=== PATIENT | male | born 1980 ===

== ENCOUNTER 2017-03-21 05:18 | Day surgery (SDC) | payer BC ==
[2017-03-21] VITALS (11 sets, daily range): BP systolic 108–122; BP diastolic 69–76
[~2017-03-21] VITALS: Ht 175.3 cm; Wt 63.5 kg
[~2017-03-21 05:18] MED LIST: NKM
[2017-03-21] MEDS ORDERED: ceFAZolin 1gm in D5W 55ml IVP ONE (06:00)
[2017-03-21] MEDS ORDERED: oxyCONTIN 20mg tab ORAL ONE (06:00)
[2017-03-21] MEDS ORDERED: celeBREX 200mg Cap **SURGERY PATIENTS ONLY ORAL ONE ×2 (06:00→06:21)
[2017-03-21] MEDS ORDERED: Ropivacaine 5mg/ml Vial 30ml INJ ONE ×2 (06:17→06:37)
[2017-03-21] MEDS ORDERED: Bupivacaine w/Epi 0.5% 30ml Vial INJ ONE (06:37)
[2017-03-21] MEDS ORDERED: LR 1000ml 1,000 ML IVLG SCH (06:58)
--- NOTE | 2017-03-21 06:58 | Anethesia Preoperative Eval ---
Anesthesia Pre-op PMH/ROS General Date of Evaluation: Mar 21, 2017 Time of Evaluation: 07:01 Anesthesiologist: Lizbeth ASA Score: ASA 1 Mallampati Score Class I : Soft palate, uvula, fauces, pillars visible Class II: Soft palate, uvula, fauces visible Class III: Soft palate, base of uvula visible Class IV: Only hard plate visible Mallampati Classification: Class I Surgeon: Abel Diagnosis: Pain L Shoulder Surgical Procedure: L Shoulder Arthroscopy, [place] Anesthesia History: none Family History: no anesthesia problems Allergies: Coded Allergies: No Known Allergies (Unverified , 03/20/17) Medications: see eMAR Past Medical History PSxH Narrative: Spine SX Anesthesia Pre-op Phys. Exam Physician Exam Last Vital Signs Date Time Temp Pulse Resp B/P (MAP) Pulse Ox O2 Delivery O2 Flow Rate FiO2 03/21/17 06:07 98.1 51 20 108/71 100 Room Air Constitutional: NAD Neurologic: CN 2-12 intact Cardiovascular: RRR Respiratory: CTA Gastrointestinal: S/NT/ND Airway Exam Mallampati Score: Class I MO: full ROM: full Teeth: intact Anesthesia Pre-op A/P Risk Assessment & Plan Assessment: ASA 1 Plan: GA, BIS, L Supraclavicular Block Status Change Before Surgery: No Pre-Antibiotics Dru Gram Ancef IV Time Given: 07:21 Joaquim Nieves MD Mar 21, 2017 06:58
[2017-03-21] MEDS ORDERED: DiphenhydrAMINE 50mg/ml Inj IVP PRN (07:00)
[2017-03-21] MEDS ORDERED: NS Irrig 4000ml IRRIG ONE ×2 (07:00→08:07)
[2017-03-21] MEDS ORDERED: Ketorolac 60mg Inj IV PRN (07:00)
[2017-03-21] MEDS ORDERED: LORazepam Inj 2mg/ml 1ml IV PRN (07:00)
[2017-03-21] MEDS ORDERED: Dexamethasone 4mg/ml vial ONE (07:00)
[2017-03-21] MEDS ORDERED: Ketorolac 30mg Inj IV PRN (07:00)
[2017-03-21] MEDS ORDERED: Midazolam 2mg/2ml Inj IVP PRN (07:00)
[2017-03-21] MEDS ORDERED: Metoclopramide 10mg/2ml Inj IVP PRN (07:00)
[2017-03-21] MEDS ORDERED: Hydromorphone 0.5mg/0.5ml inj IVP PRN (07:00)
[2017-03-21] MEDS ORDERED: EPINEPHrine 1mg/1ml Amp ONE (07:00)
[2017-03-21] MEDS ORDERED: fentaNYL 100 mcg/2 mL IV PRN (07:00)
[2017-03-21] MEDS ORDERED: LR 1000ml ONE (07:00)
[2017-03-21] MEDS ORDERED: oxyCODONE HCL/Acetaminophen 5/325mg ORAL PRN (07:00)
[2017-03-21] MEDS ORDERED: Sodium Chloride 10ml vial INJ ONE (07:00)
[2017-03-21] MEDS ORDERED: Norco 5mg/325mg tab ORAL PRN ×2 (07:00→13:01)
[2017-03-21] MEDS ORDERED: Atropine Inj 1mg/10ml Syr IV PRN (07:00)
[2017-03-21] MEDS ORDERED: Lidocaine 1% MPF 10mg/ml 5ml ONE (07:00)
[2017-03-21] MEDS ORDERED: Alfentanil 2ml Inj ONE (07:00)
[2017-03-21] MEDS ORDERED: Propofol 200mg/20ml IV ONE (07:00)
[2017-03-21] MEDS ORDERED: Norco 7.5mg/325mg tab ORAL PRN (07:00)
--- NOTE | 2017-03-21 07:00 | 48 Hour Post Anesthesia Eval ---
Post Anesthesia Evaluation Procedure: L Shoulder Arthroscopy, Quintin Date of Evaluation: Mar 21, 2017 Time of Evaluation: 11:43 Blood Pressure Systolic: 126 0: 74 Pulse Rate: 71 Respiratory Rate: 18 Temperature (Fahrenheit): 98.2 O2 Sat by Pulse Oximetry: 100 Airway: patent Nausea: No Vomiting: No Pain Intensity: 1 Hydration Status: adequate Cardiopulmonary Status: Stable Mental Status/LOC: patient returned to baseline Follow-up Care/Observations: 0 Post-Anesthesia Complications: 0 Follow-up care needed: ready to discharge Joaquim Nieves MD Mar 21, 2017 07:00
--- NOTE | 2017-03-21 07:00 | Immediate Post-Op Evaluation ---
Immediate Post-Op Evalulation Immediate Post-Op Evalulation Procedure: L Shoulder Arthroscopy, Quintin Date of Evaluation: Mar 21, 2017 Time of Evaluation: 09:39 Blood Products: 0 Estimated Blood Loss: 50 Urinary Output: 0 Blood Pressure Systolic: 121 Blood Pressure Diastolic: 71 Pulse Rate: 66 Respiratory Rate: 16 O2 Sat by Pulse Oximetry: 100 Temperature (Fahrenheit): 97.4 Pain Score (1-10): 1 Nausea: No Vomiting: No Complications 0 Patient Status: awake, reacts, patent, extubated, none Hydration Status: adequate Dru Gram Ancef IV Given Within 1 Hr of Incision: Yes Time Given: 07:21 Joaquim Nieves MD Mar 21, 2017 07:00
--- NOTE | 2017-03-21 07:38 | Pre-Procedure Note/Attestation ---
Pre-Procedure Note/Attestation Complete Prior to Procedure Planned Procedure: left Procedure Narrative: left shoulder scope, sad, bankart repair Indications for Procedure Pre-Operative Diagnosis: left shoulder instability Attestation I attest that I discussed the nature of the procedure; its benefits; risks and complications; and alternatives (and the risks and benefits of such alternatives ), prior to the procedure, with the patient (or the patient's legal welding equipment sales representative). I attest that, if there was a reasonable possibility of needing a blood transfusion, the patient (or the patient's legal welding equipment sales representative) was given the [facility] standardized written summary, pursuant to the Alvaro Zach Blood Safety Act ([place] Health and Safety Code # 1645, as amended). I attest that I re-evaluated the patient just prior to the surgery and that there has been no change in the patient's H&P, except as documented below:none JAMES ROWLAND Mar 21, 2017 07:38
--- NOTE | 2017-03-21 09:23 | Brief Operative Note ---
Immediate Post Operative Note Operative Note Chief Complaint: left shoulder instability Pre-op Diagnosis: left shoulder labral tear Procedure: left shoulder scope, bankart repair Post-op Diagnosis: same as pre-op Findings: consistent w/pre-op dx studies Surgeon: md douglas Division Plant Engineer: marie quintanilla Anesthesiologist: md adilene Anesthesia: general Specimen: none Complications: none Condition: stable Fluids: NS Estimated Blood Loss: minimal Drains: none Implant(s) used?: Yes - 6 biomet single loaded 1.5mm anchors WINSTON QUINTANILLA Mar 21, 2017 09:23
[2017-03-21] MEDS ORDERED: HYDROmorphone 1mg/ml Carpuject SUBQ PRN (13:01)
[2017-03-21] MEDS ORDERED: Tylenol #3 tab (300mg/30mg) ORAL PRN (13:01)
[2017-03-21] MEDS ORDERED: D5 1/2NS 1,000 ML IV SCH (13:01)
--- NOTE | 2017-03-21 18:30 | Operative Note - Dictated ---
DATE OF OPERATION: 03/21/2017 PREOPERATIVE DIAGNOSIS: Left shoulder marked instability with recurrent dislocation. POSTOPERATIVE DIAGNOSES: 1. Left shoulder large anterior labral tearing involving the entire anterior labrum with reattachment on the inferior neck of the glenoid. 2. Left shoulder posterior labral tearing from posterior inferior, down to the mid center, down to the posterior superior labral tearing. 3. Anterior glenoid loss up to 25% on the anterior inferior aspect of the glenoid. 4. Medium-sized Hill-Sachs lesion of the left shoulder. PROCEDURES: 1. Left shoulder arthroscopy and extensive intra-articular shaving. 2. Left shoulder posterior as well as posterior superior labral repair using 3 Biomet JuggerKnot anchors. 3. Left shoulder anterior Bankart repair with capsular shift using 3 Biomet 1.5 mm JuggerKnot anchors. 4. Left shoulder subacromial bursoscopy, bursectomy, and left shoulder rotator cuff without any evidence of rotator cuff tear. SURGEON: Tong Roman M.D. SCHOOL PHOTOGRAPHER: Chikis [employer] Recruiter was present during the actual operative portion of the case and was important and essential part of the operation. During the operation, the custody assistant held and operated the arthroscopic camera for visualization, assisted by manipulating the arm to help with visualization, and helped with essential parts of the repair process as necessary such as operating surgical instruments under surgeon supervision, suture management, and wound closures. ANESTHESIOLOGIST: Joaquim Nieves M.D. ANESTHESIA: General LMA anesthesia. EBL: Minimal. COMPLICATIONS: None. SURGICAL INDICATION: The patient is a 36-year-old male who sustained the above injury to his shoulder. The patient was treated non-operative initially, but this did not alleviate the patients symptoms. Therefore, after discussing all non-surgical and surgical options, and discussing all foreseeable risk and benefits of surgery, the patient opted for surgical treatment as described above. PATIENT POSITIONING: Patient was brought to the operating room table and was placed on the operating room table. All pressure points were well padded. General anesthesia was induced and patient was then placed in the lateral decubitus position. All pressure points were well padded again and an axillary roll was placed. Patient shoulder was then prepped and draped in the usual sterile fashion. Time out was performed and the appropriate preoperative antibiotic was given by the anesthesiologist. EXAMINATION OF SHOULDER UNDER ANESTHESIA: The shoulder was examined under anesthesia with all muscles well relaxed. The shoulder was forward flexed, abducted and was placed through full range of external and internal rotation. The anterior, posterior, and inferior stability of the shoulder was checked. The exam revealed there was no evidence of adhesive capsulitis; however, there was marked instability with anterior as well as posterior as well as anterior inferior instability. PORTAL PLACEMENT: The posterior portal was established 2 cm inferior and 1 cm medial to the edge of the posterior acromion. 1 cm skin incision was made using an eleven blade and using the blunt obturator, the cannula was gently placed through the capsule. The midglenoid portal was established just lateral to the coracoid process under direct visualization. Direction of the cannula was first established using a spinal needle, and subsequently, the cannula was placed through the capsule with a blunt obturator. The anterior superior cannula was established under direct visualization off the anterior lateral edge of the acromion and just anterior to the biceps tendon through the rotator interval. The directional of cannula was first established using a spinal needle, and subsequently, the cannula was placed through the capsule with a blunt obturator. DIAGNOSTIC ARTHROSCOPY: The biceps tendon was probed and pulled through the joint for visualization. It appeared normal. The biceps anchor was palpated with a probe and was visualized. There was a posterior labral tearing posterior to the biceps consistent with a posterior SLAP tear. The posterior labrum and axillary recess was visualized. This was a posterior labral tearing. Actually recess had a large tear at the level of the labrum. There was some chondral damage over the anterior inferior aspect of the humeral head and glenoid. There was approximately between 20% and 25% glenoid loss on the anterior aspect of the glenoid. The articular surface of the rotator cuff was visualized and probed next. There was no evidence of articular sided rotator cuff tear extending from the supraspinatus back to the posterior cuff. The Humeral head articular surface was then visualized. There was no evidence of articular cartilage damage. Next the anterior labrum, middle gleno-humeral ligament, subscapularis tendon, and the anterior inferior gleno-humeral ligament were evaluated. There was a large anterior as well as anterior inferior labral tearing with complete loss of glenoid. The humeral head was fitting anteriorly and dislocated from the glenoid just with a traction. There was Hill-Sachs lesion posteriorly measured approximately 1.5 cm. The subscapularis was intact. The middle gleno-humeral ligament was intact. At this point, the scope was moved to the midglenoid portal and the posterior structures including the posterior labrum, posterior capsule and posterior cuff were visualized. There was a large posterior labral tearing from inferiorly all the way to the center, all the way to the posterior biceps. The subscapularis recess was devoid of any loose bodies and the anterior capsule was well attached to the humeral neck. The middle and anterior inferior glenohumeral ligament was visualized. There was again large Bankart lesion anteriorly. OPERATIVE DEBRIDEMENTS AND REPAIR: Care was given to all partial thickness tears and frayed structures in the shoulder joint. The frayed rotator cuff and labrum was debrided using a shaver initially through the anterior portal and subsequently through the posterior portal to complete the debridement. This allowed for smooth debridement of all affected structures and all loose fragments were removed. At this point, care was given to large posterior labral tear as well as the posterior bicipital tear. At this point using combination of elevator and kranthi, this area was mobilized. At this point, 3 Biomet JuggerKnot anchors were placed, one at the most posterior inferior, one in the central, and one more superiorly and using suture passing technique, the posterior capsular shift was performed and two horizontal mattress sutures were placed anteriorly and one simple suture was placed superiorly. This provided excellent stability. The sutures were then tied using SMC knots followed by 3 half hitches without any complication. This provided excellent stability to the posterior labrum. At this point, care was given to the anterior Bankart tear. The scope was placed in the anterior-superior cannula for visualization. Through the posterior cannula, initially, care was given to the posterior capsule. The posterior capsule was first prepared using a rasp to create microbleeding. Using standard suture passing instruments, a posterior pinch tuck plicating balancing suture was placed in the posterior inferior glenohumeral ligament through the labrum in a horizontal mattress fashion. The Suture was then placed outside the posterior cannula and was tied after completion of the anterior repair using Revo non-sliding knot with alternating-post half hitches. Then, through the midglenoid cannula, care was given to the torn anterior labrum. The scar portion of the anterior labrum was first mobilized with a liberator elevator off the glenoid neck. Once this was accomplished, the mobilization was taken more inferiorly all the way down to the 6 oclock position of the glenoid to allow transport of the labrum with the attached anterior inferior gleno-humeral ligament superiorly. The glenoid rim was then prepared by debriding it using a shaver and a senthil to provide bleeding bone for accepting the labrum and the ligament. Using the guide, drill holes were made at the 5, 4, and 2:30 oclock positions of the glenoid 1-2 mm medial to the margin of the articular cartilage on the glenoid surface. A all suture anchor loaded with a non-absorbable #2 strong suture was then placed and tapped through this drill hole. The security of the anchor inside the bone was checked and it was assured that the anchor is well seated and not proud. Using standard suture passing instruments and using pinch-tuck technique, the anterior inferior gleno-humeral ligament was shifted from inferiorly to anterior-superior direction and was incorporated with the labral bite. The suture was then passed through the capsulolabral complex, and it was then secured using a SMC sliding knot followed by 3 alternating-post half hitches. This process was performed for all anchors. The security of the repair was assured with a probe. The position of the humeral head was checked and it appeared that the head was sitting centrally within the glenoid as judged by the central bare area. At this point, the scope was placed in the subacromial space and the subacromial space was visualized. There was bursitis due to instability. The bursa was resected and rotator cuff was visualized. There is evidence of bursal sided rotator cuff tear. No subacromial decompression was performed. CONDITION AT DISCHARGE FROM OPERATING ROOM: The skin was re-approximated and sterile dressing and sling were applied. All lap counts and instrument counts were correct. Patient tolerated the procedure well without complications and was taken to the recovery room in stable conditions. Tong Roman M.D. DR: EWA JOB#: [id number] CC:
== END 2017-03-21 13:20 | disposition home or self-care (01) ==
LOC: SUR 05:18
DX: S43.492A Other sprain of left shoulder joint, initial encounter (principal); M75.82 Other shoulder lesions, left shoulder; X58.XXXA Exposure to other specified factors, initial encounter; Y93.9 Activity, unspecified; Y92.9 Unspecified place or not applicable; Z80.8 Family history of malignant neoplasm of other organs or systems
CPT/HCPCS: 29806; 29807; 29822; J0171; J0690; J1100; J2250; J2405; J2704; J2795; J3490; J7120; 94003; 94150; C1713